=== PATIENT | male | born 1985 | race African-American/Black ===

== ENCOUNTER 2017-10-07 23:25 | Emergency (ER) | payer SELFPAY ==
[~2017-10-07] VITALS: Ht 160 cm; Wt 80.0 kg
[2017-10-08] MEDS ORDERED: KETOROLAC 60MG/2ML VIAL IM ONE (01:15)
[2017-10-08] MEDS ORDERED: DEXAMETHASONE 10 MG/ML VIAL IM ONE (01:15)
[2017-10-08] MEDS ORDERED: DIAZEPAM 2 MG TABLET PO ONE (01:15)
[2017-10-08 03:00] VITALS: BP 135/64
== END 2017-10-08 03:00 | disposition home or self-care (01) ==
LOC: ER 23:25
DX: M54.40 Lumbago with sciatica, unspecified side (principal); F17.200 Nicotine dependence, unspecified, uncomplicated
CPT/HCPCS: 96372; 99284; J1100; J1885; Z7610